=== PATIENT | female | born 1990 | race Caucasian/White ===

== ENCOUNTER 2017-10-15 15:37 | Emergency (ER) | payer BC, OTHER | END 2017-10-15 16:02 | disposition home or self-care (01) | LOC: BURERS 15:37 | DX: S01.111A Laceration without foreign body of right eyelid and periocular area, initial encounter (principal); F17.210 Nicotine dependence, cigarettes, uncomplicated; W22.8XXA Striking against or struck by other objects, initial encounter | CPT/HCPCS: 12011 ==

== ENCOUNTER 2018-11-22 21:49 | Emergency (ER) | payer OTHER, SELFPAY ==
[2018-11-22] MEDS ORDERED: Lidocaine 1% PF 5 ML VIAL ONE (21:58)
[2018-11-22] MEDS ORDERED: Sodium Bicarbonate 2.5 MEQ/5 ML VIAL ONE (22:00)
--- NOTE | 2018-11-22 22:55 | RAD ---
RIGHT INDEX FINGER TWO VIEWS 11/22/18 There is amputation of the soft tissues of the tip of the index finger. The nail is involved but no opaque foreign body was seen. There is no fracture. IMPRESSION: Amputation of the soft tissues at the tip of the index finger without fracture. POS: HOME
== END 2018-11-22 22:03 | disposition home or self-care (01) ==
LOC: BURERS 21:49
DX: S61.211A Laceration without foreign body of left index finger without damage to nail, initial encounter (principal); F17.210 Nicotine dependence, cigarettes, uncomplicated; W45.8XXA Other foreign body or object entering through skin, initial encounter
CPT/HCPCS: 12002; J2001